=== PATIENT | male | born 1945 | race Caucasian/White ===

== ENCOUNTER 2023-01-11 14:05 | Emergency (ER) | payer MEDICARE, OTHER ==
[~2023-01-11 14:05] MED LIST: Iopamidol 370 76% 100 ML VIAL ONE
[2023-01-11] MEDS ORDERED: Ondansetron PF 4 MG/2 ML Vial ONE (14:38)
[2023-01-11 14:46] LABS: #Basophils 0.1 thou/uL (0.0-0.2); #Eosinphils 0.1 thou/uL (0.0-0.7); #Lymphocytes 2.1 thou/uL (1.20-3.40); #Monocytes 0.8 thou/uL (0.11-0.59); %Eosinophils 0.8 % (0.0-10.0); %Lymphocytes 14.8 % (21.0-51.0); %Monocytes 5.4 % (0.0-10.0); Hemoglobin 15.2 g/dL (14.0-18.0); Mean Corpuscular HGB CONC 29.3 g/dL (32.0-36.0); Mean Corpuscular Hemoglobin 22.9 pg (27.0-31.0); Mean Corpuscular Volume 78.2 fl (78.0-98.0); Platelet Count 170 10x3/uL (130-400); RBC Distribution Width 19.3 % (11.5-14.5); Red Blood Cell (RBC) Count 6.65 mill/uL (4.70-6.10); White Blood Cell (WBC) Count 14.1 10x3/uL (4.8-10.8)
[2023-01-11 15:00] LABS: ALT (SGPT) 34 U/L (8-55); AST (SGOT) 35 U/L (5-34); Albumin 4.7 g/dL (3.4-4.8); Alkaline Phosphatase 96 U/L (40-110); Anion Gap 18 mmol/L (10-20); BUN (Urea Nitrogen) 22 mg/dL (8.4-25.7); Bilirubin, Total 1.3 mg/dL (0.2-1.2); Calc. Creatinine Clearance 0 mL/min (70-130); Calcium 9.7 mg/dL (7.8-10.44); Carbon Dioxide 24 mmol/L (23-31); Chloride 103 mmol/L (98-107); Estimated GFR 39; Globulin 2.5 g/dL (2.4-3.5); Glucose 129 mg/dL (83-110); Potassium 4.5 mmol/L (3.5-5.1); Protein, Total 7.2 g/dL (5.8-8.1); Sodium 140 mmol/L (136-145)
[2023-01-11 15:03] LABS: Polychromasia SLIGHT = 2-3 cells (100X) (0-2/hpf)
[2023-01-11] MEDS ORDERED: Sodium Chloride 0.9% 1,000 ML ONE ×3 (15:11→19:20)
[2023-01-11] MEDS ORDERED: Sodium Chloride 0.9% 100 ML ONE (15:11)
[2023-01-11] MEDS ORDERED: Acetaminophen 500 MG TAB ONE (15:11)
[2023-01-11] MEDS ORDERED: Cefepime 2 GM VIAL ONE (15:11)
[2023-01-11 15:43] LABS: Bilirubin Negative (Negative); Blood, Urine Negative (Negative); Clarity Clear (Clear); Glucose, Urine (Dipstick) 500 mg/dL (Negative); Ketone, Urine 15 mg/dL (Negative); Leukocyte Negative (Negative); Nitrite Negative (Negative); Protein, Urine (Dipstick) 30 mg/dL (Neg-Trace); Urobilinogen 0.2 mg/dL (Less than 2)
[2023-01-11 15:50] LABS: Bacteria/HPF Rare-Few HPF (None Seen); CAUTI Indications for Culture Fever or rigors; RBC/HPF 0-3 HPF (0-3); Squamous Epithelial 0-3 HPF (0-3); WBC/HPF 0-3 HPF (0-3); Yeast-Budding 1+ HPF (None Seen)
[2023-01-11 15:52] LABS: Mucous/LPF Few LPF (<2+); Urine Culture Reflex No No
[2023-01-11] MEDS ORDERED: Vancomycin 1 GM VIAL ONE ×2 (16:46→17:01)
[2023-01-11] MEDS ORDERED: Vancomycin HCl 500 MG VIAL ONE (16:46)
[2023-01-11 17:28] LABS: SARS-CoV-2 NAA Rapid Test Not Detected (NotDetected)
[2023-01-11 17:29] LABS: Lactic Acid 1.3 mmol/L (0.5-2.2)
[2023-01-11] MEDS ORDERED: Ketorolac Tromethamine 30 MG/ML VIAL ONE (18:20)
== END 2023-01-11 20:10 | disposition short-term general hospital (02) ==
LOC: MADERS 14:05
DX: A41.9 Sepsis, unspecified organism (principal); R65.20 Severe sepsis without septic shock; R41.82 Altered mental status, unspecified; G93.41 Metabolic encephalopathy; E11.621 Type 2 diabetes mellitus with foot ulcer; L97.519 Non-pressure chronic ulcer of other part of right foot with unspecified severity; R16.1 Splenomegaly, not elsewhere classified; E03.9 Hypothyroidism, unspecified; I10 Essential (primary) hypertension; Z79.84 Long term (current) use of oral hypoglycemic drugs; Z79.899 Other long term (current) drug therapy; Z20.822 Contact with and (suspected) exposure to COVID-19
CPT/HCPCS: 36415; 36416; 70450; 71045; 71260; 74177; 80053; 81001; 83605; 83735; 83880; 84484; 85025; 87040; 87077; 87086; 87149; 87186; 87804; 93005; 94760; 96361; 96365; 96375; J0692; J1885; J2405; J3370; J3490; J7050; Q9967; U0002